=== PATIENT | male | born 1975 | race Caucasian/White ===

== ENCOUNTER 2017-04-23 16:30 | Inpatient (IN) | payer SELFPAY ==
[~2017-04-23] VITALS: Ht 175.3 cm; Wt 66.2 kg
[2017-04-23] VITALS (8 sets, daily range): BP systolic 126–162; BP diastolic 67–94
--- NOTE | ~2017-04-23 | CON ---
[place], [place] [id number] UNIT #: [id number] ROOM: 416 DOCTOR: MICHAEL WHALEY MD BIRTHDATE: [birth year] DOS: 04/24/2017 REASON FOR CONSULTATION: Elevated troponin levels. HISTORY OF PRESENT ILLNESS: The patient is a 41-year-old man who has no previously documented history of heart disease. He takes no prescribed medicines. He does have risk factors of cigarette abuse and a family history of coronary artery disease. His father reportedly had bypass surgery and then of coronary artery disease by age 62. The patient does not have a history of diabetes, hypertension or hyperlipidemia. The patient does have a history of drug abuse. He apparently did use heroin yesterday. In addition, he had "snorted a pain pill." He lost consciousness and EMS were called. At the scene, he was given Narcan with improvement in his sensorium. He states that bystanders said that he was "" but there is nothing in the records that indicates that he was defibrillated or had CPR. Urine drug screen was multiple positive including opiates, barbiturates, amphetamines, benzodiazepines and cannabinoids. In the Emergency Room, the patient did have cardiac biomarkers drawn. Total CK was normal, but his troponin level on admission was elevated at 0.090. Serial troponin levels were obtained and the peak troponin was 0.261. It is now falling in a pattern suggesting a non-ST elevation myocardial infarction. The patient denies any chest pain. He denies any history of angina. He denies any palpitations, lightheadedness or syncope prior to yesterday's events. PAST MEDICAL HISTORY: Essentially unremarkable. The patient specifically denies hypertension, diabetes or hyperlipidemia. MEDICATIONS: He is on no prescribed medications. ALLERGIES: He has no known drug allergies. FAMILY HISTORY: The patient's father had a bypass surgery and three MIs. He at age 62 from a heart attack. His mother of chronic obstructive pulmonary disease. REVIEW OF SYSTEMS: The patient denies diplopia or loss of vision. He denies focal weakness. He denies lightheadedness or syncope. He denies fevers, chills, sweats or recent weight change. He denies nausea or vomiting. He denies orthopnea or PND. He denies chest pain or palpitations. He denies cough or hemoptysis. He denies hematemesis. He denies any skin rashes polydipsia, polyuria, heat or cold intolerance. He denies anxiety or significant depression. He denies change in bowel or bladder habits. He denies blood in his urine or stools. He denies any peripheral edema. The remainder of the review of systems is negative except as noted above. SOCIAL HISTORY: The patient is known to abuse illegal drugs including opioids, [place], [place] REPORT OF CONSULTATION NAME: PALAK HU UNIT #: [id number] ROOM: [facility] DOCTOR: MICHAEL WHALEY MD BIRTHDATE: [birth year] cannabis and amphetamines. He does smoke about a half pack of cigarettes a day, but does not consume alcohol. PHYSICAL EXAMINATION: GENERAL: The patient is a well-nourished white male who is awake, alert and oriented. VITAL SIGNS: Pulse is 66 and regular, blood pressure is 100/50. He is afebrile. He weighs 66.2 kilograms and has a body mass index of 21.6. HEENT: Normocephalic, atraumatic. Extraocular muscles are intact. Sclerae are clear. Pupils are equal, round and reactive to light. The oral mucosa is moist. Tongue is midline. NECK: Supple. He has no jugular distention. Carotids are full. I heard no bruits. He had no neck or clavicular masses. LUNGS: Respirations are unlabored. His chest is clear to auscultation and percussion. He had no presacral edema or chest wall tenderness. HEART: Had a regular rhythm. He had a fourth heart sound, but no third heart sound or murmur. The PMI was not displaced. He had no precordial heave, lift or thrill. ABDOMEN: Soft and normoactive without masses, organomegaly or bruits. EXTREMITIES: Showed no clubbing, cyanosis or edema. Peripheral pulses were easily palpated in the feet bilaterally. LABORATORY DATA: I reviewed his electrocardiogram, which showed sinus rhythm with nonspecific lateral T-wave flattening, but no acute ST elevation or depression. His hemoglobin is 13.2, white count 9000, platelet count 106,000. Sodium 145, potassium 4.1, BUN 8, creatinine 0.88. Troponins are as noted above. Total cholesterol is 128 with an LDL of 72 and HDL of 44 and triglycerides of 60. TSH is 0.930. IMPRESSIONS: 1. Unintentional heroin overdose. 2. Multidrug abuse. 3. Elevated troponin. 4. Family history of heart disease in his father in his 50s. PLAN: The patient's blood studies are consistent with an acute non-ST elevation myocardial infarction. This may have been due to demand ischemia from hypoxemia, amphetamine abuse, etc. However, given his family history, one must at least consider that he has underlying coronary disease. I think that he should undergo an exercise myocardial perfusion study. If this shows normal left ventricular size, wall motion and function with normal perfusion, then no other cardiac workup would be indicated, but if it does show large areas of ischemia, then catheterization would be a next step. I thank the hospitalist physicians for asking our advice regarding management of this patient. [place], [place] REPORT OF CONSULTATION NAME: PALAK HU UNIT #: [id number] ROOM: 416 DOCTOR: MICHAEL WHALEY MD BIRTHDATE: [birth year] MICHAEL WHALEY MD CM:CONSTR:REPORT OF CONSULTATION [id number] 04/24/17 2149 interface
--- NOTE | ~2017-04-23 | PR ---
[place], [place] PROGRESS NOTE NAME: PALAK HU [facility] #: [id number] UNIT #: [id number] ROOM: 416 DOCTOR: MICHAEL WHALEY MD BIRTHDATE: [birth year] DOS: 04/25/2017 SUBJECTIVE: The patient was seen in the cardiology department just prior to his stress test today. He had no problems overnight and specifically denied chest pain, palpitations, or dyspnea. PHYSICAL EXAMINATION: VITAL SIGNS: His pulse was 52 and regular, blood pressure is 102/48, he was afebrile, he weighed 66.2 kilograms with a body mass index of 21.6. NECK: Supple. He had no jugular distention. Carotids are full. LUNGS: Respirations were unlabored. CHEST: His chest was clear to auscultation and percussion. He had no presacral edema or chest wall tenderness. HEAR: Had a regular rhythm with a soft S4 gallop, but no S3 or murmur. The PMI was not displaced. He had no precordial heave, lift or thrill. ABDOMEN: Benign. EXTREMITIES: Showed no edema. IMPRESSION: 1. Unintentional heroin overdose. 2. Multidrug abuse. 3. Elevated troponin. 4. Family history of heart disease in his father in his 50s. PLAN: The patient appears clinically stable from a cardiac standpoint. We will evaluate him further with an exercise stress myocardial perfusion study. Further recommendations will depend upon the results of the stress test. I thank the hospitalist physicians for asking our advice regarding his care. MICHAEL WHALEY MD CM:PNTRANS [id number] MICHAEL WHALEY MD 04/25/17 1433 interface
--- NOTE | ~2017-04-23 | ST ---
[place], [place] EXERCISE STRESS TEST REPORT NAME: PALAK HU [facility] #: [id number] UNIT #: [id number] ROOM: 416 DOCTOR: MICHAEL WHALEY MD BIRTHDATE: [birth year] DOS: 04/25/2017 INDICATIONS: Abnormal electrocardiogram and elevated troponin levels. PROCEDURE: The patient walked on a full Nathaniel protocol for 9 minutes 14 seconds and achieved a maximum heart rate of 120. He had to stop at that point because of leg fatigue and dyspnea. His heart rate was well below 85% of his maximum predicted heart rate. We continued to have the patient walk on the treadmill, but at the low rate and then administered regadenoson 0.4 mg intravenously followed by a saline flush. The patient felt dyspneic, but had no other symptoms. The resting electrocardiogram showed left ventricular hypertrophy. No further changes occurred with the exercise or infusion. Forty seconds after the infusion of regadenoson, he was given radionuclide intravenously. IMPRESSION: 1. Adequate exercise capacity, but without an adequate heart rate response. 2. Well tolerated infusion of regadenoson. 3. Radionuclide injected. Please see the separate imaging report for further details of the patient's stress test results. MICHAEL WHALEY MD CM:STRESS:EXERCISE STRESS TEST REPORT [id number] MICHAEL WHALEY MD
[~2017-04-23 16:30] MED LIST: CATAFLAM50 MG PO; CLEOCIN HCL300 MG PO; CLINDAMYCIN HC300 MG PO; DELTASONE20 M1 PO; IBU800 M1 PO; IBU800 MG PO; MOBIC15 MG PO; PEN-VEE K500 MG PO; PENICILLIN VK500 MG PO; ULTRAM50 MG PO
[2017-04-23 18:04] LABS: HEMATOCRIT 50.6 % (42.0-52.0); HEMOGLOBIN 16.9 g/dl (14.0-18.0); MEAN CELL VOLUME 95.7 fl (80.0-94.0); MEAN CORPUSCULAR HGB 31.9 pg (27.0-31.0); MEAN CORPUSCULAR HGB CONC 33.4 g/dl (33.0-37.0); MEAN PLATELET VOLUME 11.3 fl (9.6-12.3); PLATELET COUNT AUTOMATED 131 10*3/uL (130-400); RED BLOOD COUNT 5.29 10*6/uL (4.50-5.90); RED CELL DISTRI WIDTH 12.3 % (0-14.5)
[2017-04-23 18:14] LABS: INTERNATIONAL NORM RATIO 1.1 (2.0-3.5); PROTHROMBIN TIME 11.2 SECONDS (9.0-12.4)
[2017-04-23 18:24] LABS: LYMPHOCYTE # 0.6 10*3/uL (1.3-4.4); MONOCYTE # 1.1 10*3/uL (0.1-1.0); NEUTROPHIL # 19.3 10*3/uL (2.3-7.9); NEUTROPHILS 92 % (47-73); TOTAL CELLS COUNTED 100 #CELLS
[2017-04-23 18:25] LABS: ALBUMIN 3.5 gm/dl (3.1-4.5); ALKALINE PHOSPHATASE 136 U/L (45-117); BILIRUBIN, TOTAL 0.4 mg/dl (0.2-1.0); BUN 12 mg/dl (7-24); C-REACTIVE PROTEIN < 0.29 MG/DL (0-0.3); CARBON DIOXIDE 29 mmol/L (21-32); CHLORIDE 108 mmol/L (98-107); CKMB 1.7 ng/ml (0.5-3.6); CPK 119 U/L (39-308); EST GLOM FILT AFRICAN AMERICAN > 60 ml/min; GLUCOSE 123 mg/dL (65-99); PLATELET SUFFICIENCY LOW (NORMAL); POTASSIUM 4.6 mmol/L (3.5-5.1); SGOT/AST 16 IU/L (3-35); SGPT/ALT 25 U/L (12-78); SODIUM 145 mmol/L (136-145); TOTAL PROTEIN 6.3 gm/dL (6.4-8.2)
[2017-04-23 19:23] LABS: BILIRUBIN NEGATIVE (NEGATIVE); BLOOD NEGATIVE (NEGATIVE); CLARITY CLEAR (CLEAR); COLOR YELLOW (YELLOW); GLUCOSE NEGATIVE (NEGATIVE); KETONE TRACE (NEGATIVE); LEUKO ESTERASE NEGATIVE (NEGATIVE); NITRITE NEGATIVE (NEGATIVE); PROTEIN 2+ (NEGATIVE); SPECIFIC GRAVITY 1.025 (1.005-1.030); UROBILINOGEN 0.2 E.U./dl (0.2-1.0)
[2017-04-23 19:29] LABS: BACTERIA 2+; EPITHELIAL CELLS 0-2; MUCOUS TRACE
[2017-04-23 19:32] LABS: URINE AMPHETAMINES > 1000 (1000ng/ml); URINE BARBITURATES > 200 (200ng/ml); URINE COCAINE < 300 (300ng/ml)
[2017-04-23 20:14] LABS: BASO % 0.1 % (0.0-1.0); EOS % 0.1 % (1.0-4.0); HEMATOCRIT 46.5 % (42.0-52.0); HEMOGLOBIN 15.3 g/dl (14.0-18.0); IG # 0.1 10*3/uL (0.0-0.1); LYMPH # 0.9 10*3/uL (1.3-4.4); LYMPH % 6.3 % (27.0-41.0); MEAN CELL VOLUME 96.1 fl (80.0-94.0); MEAN CORPUSCULAR HGB 31.6 pg (27.0-31.0); MEAN CORPUSCULAR HGB CONC 32.9 g/dl (33.0-37.0); MEAN PLATELET VOLUME 11.1 fl (9.6-12.3); MONO # 0.9 10*3/uL (0.1-1.0); MONO % 5.9 % (3.0-9.0); NEUT # 12.9 10*3/uL (2.3-7.9); NEUT % 87.1 % (47.0-73.0); PLATELET COUNT AUTOMATED 120 10*3/uL (130-400); RED BLOOD COUNT 4.84 10*6/uL (4.50-5.90); RED CELL DISTRI WIDTH 12.3 % (0-14.5); WHITE BLOOD COUNT 14.8 10*3/uL (4.8-10.8)
[2017-04-24] VITALS: BP 132/70
[2017-04-24 05:44] LABS: BUN 8 mg/dl (7-24); CARBON DIOXIDE 30 mmol/L (21-32); CHLORIDE 107 mmol/L (98-107); CHOLESTEROL 128 mg/dL (<200); EST GLOM FILT AFRICAN AMERICAN > 60 ml/min; FREE T4 1.13 ng/dl (0.76-1.46); GLUCOSE 97 mg/dL (65-99); HDL CHOLESTEROL 44 mg/dl (40-60); LDL CHOLESTEROL 72 mg/dL (9-159); MAGNESIUM 1.8 mg/dL (1.5-2.1); PHOSPHOROUS 3.4 mg/dL (2.5-4.9); POTASSIUM 4.1 mmol/L (3.5-5.1); SODIUM 145 mmol/L (136-145); TRIGLYCERIDES 60 mg/dl (<150); VLDL CHOLESTEROL 12 mg/dL (6-40)
[2017-04-24 05:48] LABS: TROPONIN I 0.117 ng/ml (<0.045)
[2017-04-24 06:16] LABS: BASO % 0.3 % (0.0-1.0); EOS # 0.1 10*3/uL (0.0-0.4); HEMATOCRIT 40.5 % (42.0-52.0); IG # 0.1 10*3/uL (0.0-0.1); LYMPH # 2.8 10*3/uL (1.3-4.4); LYMPH % 31.1 % (27.0-41.0); MEAN CELL VOLUME 96.4 fl (80.0-94.0); MEAN CORPUSCULAR HGB 31.4 pg (27.0-31.0); MEAN CORPUSCULAR HGB CONC 32.6 g/dl (33.0-37.0); MEAN PLATELET VOLUME 11.8 fl (9.6-12.3); MONO # 0.6 10*3/uL (0.1-1.0); NEUT # 5.4 10*3/uL (2.3-7.9); PLATELET COUNT AUTOMATED 106 10*3/uL (130-400); RED CELL DISTRI WIDTH 12.3 % (0-14.5)
[2017-04-24 06:18] LABS: HEMOGLOBIN 13.2 g/dl (14.0-18.0)
[2017-04-24 07:22] LABS: HEMOGLOBIN A1c 5.3 % (4.8-5.6)
[2017-04-24 08:00] VITALS: BP 116/54
[2017-04-24 08:05] LABS: FOLIC ACID 5.99 ng/mL (>5.38)
[2017-04-24 12:00] VITALS: BP 100/50
[2017-04-24 16:00] VITALS: BP 104/57
[2017-04-24 20:00] VITALS: BP 116/41
[2017-04-25] VITALS: BP 103/46; BP 116/41
[2017-04-25 08:00] VITALS: BP 102/48
== END 2017-04-25 13:00 | disposition left against medical advice (07) | DRG 918 ==
LOC: ED 16:30 → EDHOLD 21:01 → 4E 21:33
PROVIDERS: Emergency Medicine; Internal Medicine; Student in an Organized Health Care Education/Training Program
DX: T40.1X1A Poisoning by heroin, accidental (unintentional), initial encounter (principal); R65.10 Systemic inflammatory response syndrome (SIRS) of non-infectious origin without acute organ dysfunction; I24.8 Other forms of acute ischemic heart disease; E87.8 Other disorders of electrolyte and fluid balance, not elsewhere classified; E44.0 Moderate protein-calorie malnutrition; F12.10 Cannabis abuse, uncomplicated; D72.829 Elevated white blood cell count, unspecified; R09.02 Hypoxemia; R80.9 Proteinuria, unspecified; R73.9 Hyperglycemia, unspecified; F17.210 Nicotine dependence, cigarettes, uncomplicated; E55.9 Vitamin D deficiency, unspecified; Z71.6 Tobacco abuse counseling; Y92.89 Other specified places as the place of occurrence of the external cause; Z82.49 Family history of ischemic heart disease and other diseases of the circulatory system

== ENCOUNTER 2017-06-20 21:27 | Emergency (ER) | payer MEDICAID ==
[~2017-06-20] VITALS: Ht 175.2 cm; Wt 68.0 kg
[2017-06-20] MEDS ORDERED: AMOXICILLIN500 M2 PO (22:08)
[2017-06-20] MEDS ORDERED: Motrin,Rufen800 MG PO (22:08)
[2017-06-20] MEDS ORDERED: CLINDAMYCIN HC300 MG PO (22:12)
== END 2017-06-20 22:20 | disposition home or self-care (01) ==
LOC: ED 21:27
DX: K08.89 Other specified disorders of teeth and supporting structures (principal); F17.200 Nicotine dependence, unspecified, uncomplicated

== ENCOUNTER → 2017-07-17 | Outpatient (CLI) | payer OTHER ==
[~2017-07-17] MED LIST changes: +AMOXICILLIN500 M2 PO; +Motrin,Rufen800 MG PO
[2017-07-17 11:47] LABS: HEMATOCRIT 47.2 % (42.0-52.0); HEMOGLOBIN 15.6 g/dl (14.0-18.0); MEAN CORPUSCULAR HGB 31.1 pg (27.0-31.0); MEAN CORPUSCULAR HGB CONC 33.1 g/dl (33.0-37.0); MEAN PLATELET VOLUME 11.2 fl (9.6-12.3); RED BLOOD COUNT 5.02 10*6/uL (4.50-5.90); RED CELL DISTRI WIDTH 12.5 % (0-14.5); WHITE BLOOD COUNT 6.4 10*3/uL (4.8-10.8)
[2017-07-17 12:16] LABS: ALBUMIN 3.6 gm/dl (3.1-4.5); ALKALINE PHOSPHATASE 141 U/L (45-117); BUN 14 mg/dl (7-24); CHLORIDE 108 mmol/L (98-107); CHOLESTEROL 171 mg/dL (<200); CREATININE 0.95 mg/dL (0.70-1.30); HDL CHOLESTEROL 53 mg/dl (40-60); LDL CHOLESTEROL 104 mg/dL (9-159); POTASSIUM 3.8 mmol/L (3.5-5.1); SGOT/AST 20 IU/L (3-35); SGPT/ALT 29 U/L (12-78); SODIUM 139 mmol/L (136-145); TOTAL PROTEIN 6.7 gm/dL (6.4-8.2); TRIGLYCERIDES 71 mg/dl (<150); VLDL CHOLESTEROL 14 mg/dL (6-40)
== END | disposition home or self-care (01) ==
LOC: LAB 11:15
PROVIDERS: Family Medicine
DX: M25.551 Pain in right hip (principal); M25.552 Pain in left hip; E78.00 Pure hypercholesterolemia, unspecified; E55.9 Vitamin D deficiency, unspecified; M54.9 Dorsalgia, unspecified; F17.200 Nicotine dependence, unspecified, uncomplicated; R20.0 Anesthesia of skin; R53.83 Other fatigue

== ENCOUNTER → 2017-07-24 | Outpatient (CLI) | payer OTHER ==
[2017-07-25 08:11] LABS: RHEUMATOID ARTHRITIS FACTOR 518.9 IU/mL (0.0-13.9)
[2017-07-25 14:07] LABS: SJOGREN ANTI-SS-A <0.2 AI (0.0-0.9); SJOREN AB, ANTI-SS-B <0.2 AI (0.0-0.9)
[2017-07-26 00:04] LABS: CCP ANTIBODIES IGG/IGA 4 units (0-19)
== END | disposition home or self-care (01) ==
LOC: LAB 11:26
PROVIDERS: Family Medicine
DX: M79.1 Myalgia (principal); M25.50 Pain in unspecified joint

== ENCOUNTER 2018-04-05 13:34 | Emergency (ER) | payer OTHER ==
[~2018-04-05] VITALS: Wt 72.6 kg
== END 2018-04-05 15:10 | disposition home or self-care (01) ==
LOC: ED 13:34
DX: S22.32XA Fracture of one rib, left side, initial encounter for closed fracture (principal); F17.200 Nicotine dependence, unspecified, uncomplicated; W01.0XXA Fall on same level from slipping, tripping and stumbling without subsequent striking against object, initial encounter; Y93.89 Activity, other specified; Y92.89 Other specified places as the place of occurrence of the external cause; Y99.8 Other external cause status

== ENCOUNTER 2020-09-18 20:12 | Emergency (ER) | payer OTHER ==
[~2020-09-18] VITALS: Ht 175.2 cm; Wt 68.0 kg
== END 2020-09-18 22:34 | disposition home or self-care (01) ==
LOC: ED 20:12
DX: S16.1XXA Strain of muscle, fascia and tendon at neck level, initial encounter (principal); S50.01XA Contusion of right elbow, initial encounter; S46.811A Strain of other muscles, fascia and tendons at shoulder and upper arm level, right arm, initial encounter; S09.90XA Unspecified injury of head, initial encounter; Z87.891 Personal history of nicotine dependence; W18.39XA Other fall on same level, initial encounter; Y93.89 Activity, other specified; Y92.89 Other specified places as the place of occurrence of the external cause; Y99.8 Other external cause status

== ENCOUNTER → 2020-09-21 | Outpatient (CLI) | payer OTHER ==
[2020-09-21 14:04] LABS: HEMATOCRIT 47.3 % (42.0-52.0); MEAN CELL VOLUME 97.3 fl (80.0-94.0); MEAN CORPUSCULAR HGB 31.5 pg (27.0-31.0); MEAN CORPUSCULAR HGB CONC 32.3 g/dl (33.0-37.0); MEAN PLATELET VOLUME 11.4 fl (9.6-12.3); RED BLOOD COUNT 4.86 10*6/uL (4.50-5.90); RED CELL DISTRI WIDTH 12.3 % (0-14.5); WHITE BLOOD COUNT 5.9 10*3/uL (4.8-10.8)
[2020-09-21 14:24] LABS: ALBUMIN 3.2 gm/dl (3.1-4.5); ALKALINE PHOSPHATASE 150 U/L (45-117); BUN 13 mg/dl (7-24); CHLORIDE 108 mmol/L (98-107); CHOLESTEROL 167 mg/dL (<200); CREATININE 1.08 mg/dL (0.70-1.30); HDL CHOLESTEROL 71 mg/dl (40-60); LDL CHOLESTEROL 69 mg/dL (9-159); SGOT/AST 23 IU/L (3-35); SGPT/ALT 43 U/L (12-78); SODIUM 141 mmol/L (136-145); TOTAL PROTEIN 6.4 gm/dL (6.4-8.2); TRIGLYCERIDES 133 mg/dl (<150); VLDL CHOLESTEROL 27 mg/dL (6-40)
[2020-09-21 15:22] LABS: VITAMIN D, 25-HYDROXY 18.5 ng/mL (30-100)
== END | disposition home or self-care (01) ==
LOC: LAB 13:30
PROVIDERS: ATTEND Family Medicine
DX: S50.01XA Contusion of right elbow, initial encounter (principal); E55.9 Vitamin D deficiency, unspecified; E78.00 Pure hypercholesterolemia, unspecified; R53.83 Other fatigue; X58.XXXA Exposure to other specified factors, initial encounter; Y93.89 Activity, other specified; Y92.89 Other specified places as the place of occurrence of the external cause; Y99.8 Other external cause status

== ENCOUNTER 2023-03-29 20:24 | Emergency (ER) | payer OTHER ==
[~2023-03-29] VITALS: Wt 66.2 kg
[2023-03-29] MEDS ORDERED: CEPHALEXIN500 M1 PO (23:11)
[2023-03-29] MEDS ORDERED: IBUPROFEN600 MG PO (23:11)
== END 2023-03-30 01:33 | disposition home or self-care (01) ==
LOC: ED 20:24
DX: S61.011A Laceration without foreign body of right thumb without damage to nail, initial encounter (principal); Z98.890 Other specified postprocedural states; F17.200 Nicotine dependence, unspecified, uncomplicated; W26.8XXA Contact with other sharp object(s), not elsewhere classified, initial encounter; Y93.89 Activity, other specified; Y92.89 Other specified places as the place of occurrence of the external cause; Y99.8 Other external cause status

== ENCOUNTER → 2023-06-05 | Outpatient (CLI) | payer OTHER ==
[~2023-06-05] MED LIST changes: +CEPHALEXIN500 M1 PO; +IBUPROFEN600 MG PO
[2023-06-05 16:49] LABS: HEMATOCRIT 43.5 % (42.0-52.0); MEAN CELL VOLUME 94.4 fl (80.0-94.0); MEAN CORPUSCULAR HGB 31.9 pg (27.0-31.0); MEAN CORPUSCULAR HGB CONC 33.8 g/dl (33.0-37.0); MEAN PLATELET VOLUME 11.1 fl (9.6-12.3); RED BLOOD COUNT 4.61 10*6/uL (4.50-5.90); RED CELL DISTRI WIDTH 12.7 % (0-14.5); WHITE BLOOD COUNT 9.1 10*3/uL (4.8-10.8)
[2023-06-05 17:25] LABS: VITAMIN D, 25-HYDROXY 19.4 ng/mL (30-100)
[2023-06-05 17:26] LABS: ALKALINE PHOSPHATASE 143 U/L (46-116); BUN 13 mg/dl (9-23); CHLORIDE 107 mmol/L (98-107); CHOLESTEROL 183 mg/dL (<200); FREE T4 0.86 ng/dl (0.89-1.76); LDL CHOLESTEROL 102 mg/dL (9-159); POTASSIUM 3.4 mmol/L (3.4-5.1); SGPT/ALT 63 U/L (10-49); TOTAL PROTEIN 5.7 gm/dL (6.0-8.0); TRIGLYCERIDES 95 mg/dl (<150)
== END | disposition home or self-care (01) ==
LOC: LAB 16:21
PROVIDERS: ATTEND Family Medicine
DX: Z13.220 Encounter for screening for lipoid disorders (principal); M47.817 Spondylosis without myelopathy or radiculopathy, lumbosacral region; M47.812 Spondylosis without myelopathy or radiculopathy, cervical region; R53.83 Other fatigue; F10.10 Alcohol abuse, uncomplicated; E55.9 Vitamin D deficiency, unspecified; Z79.899 Other long term (current) drug therapy

== ENCOUNTER 2023-08-05 19:27 | Emergency (ER) | payer OTHER ==
[~2023-08-05] VITALS: Ht 175.2 cm; Wt 68.0 kg
[2023-08-05] MEDS ORDERED: NAPROXEN250 MG PO (20:43)
== END 2023-08-05 21:51 | disposition home or self-care (01) ==
LOC: ED 19:27
DX: M79.641 Pain in right hand (principal); R22.31 Localized swelling, mass and lump, right upper limb; F17.200 Nicotine dependence, unspecified, uncomplicated; Z79.2 Long term (current) use of antibiotics; Z79.899 Other long term (current) drug therapy

== ENCOUNTER 2024-11-28 12:04 | Emergency (ER) | payer OTHER ==
[~2024-11-28] VITALS: Ht 175.2 cm; Wt 60.8 kg
[~2024-11-28 12:04] MED LIST changes: +NAPROXEN250 MG PO
[2024-11-28] MEDS ORDERED: LORazepam 1 MG TAB PO ONE (12:15)
[2024-11-28] MEDS ORDERED: cloNIDine Hydrochloride 0.1 MG TAB PO ONE (12:15)
[2024-11-28 12:23] LABS: BASO # 0.1 10*3/uL (0.0-0.1); BASO % 1.1 % (0.0-1.0); EOS # 0.1 10*3/uL (0.0-0.4); EOS % 1.7 % (1.0-4.0); HEMATOCRIT 54.4 % (42.0-52.0); MEAN CELL VOLUME 92.7 fl (80.0-94.0); MEAN CORPUSCULAR HGB CONC 33.5 g/dl (33.0-37.0); MEAN PLATELET VOLUME 11.3 fl (9.6-12.3); MONO # 0.7 10*3/uL (0.1-1.0); MONO % 8.3 % (3.0-9.0); NEUT # 5.3 10*3/uL (2.3-7.9); NEUT % 65.4 % (47.0-73.0); PLATELET COUNT AUTOMATED 190 10*3/uL (130-400); RED BLOOD COUNT 5.87 10*6/uL (4.50-5.90); RED CELL DISTRI WIDTH 12.4 % (0-14.5); WHITE BLOOD COUNT 8.1 10*3/uL (4.8-10.8)
[2024-11-28 12:41] LABS: BUN 10 mg/dl (9-23); CHLORIDE 105 mmol/L (98-107); POTASSIUM 3.5 mmol/L (3.4-5.1)
[2024-11-28] MEDS ORDERED: ATIVAN1 MG PO (13:19)
== END 2024-11-28 13:29 | disposition home or self-care (01) ==
LOC: ED 12:04
PROVIDERS: Nurse Practitioner Family
DX: F41.9 Anxiety disorder, unspecified (principal); R06.02 Shortness of breath; F13.939 Sedative, hypnotic or anxiolytic use, unspecified with withdrawal, unspecified; F17.200 Nicotine dependence, unspecified, uncomplicated; Z98.890 Other specified postprocedural states

== ENCOUNTER → 2025-02-24 | Outpatient (CLI) | payer OTHER ==
[~2025-02-24] MED LIST changes: +ATIVAN1 MG PO
== END | disposition home or self-care (01) ==
LOC: RAD 15:39
PROVIDERS: ATTEND Nurse Practitioner Family
DX: R29.6 Repeated falls (principal)

== ENCOUNTER → 2025-02-25 | Outpatient (CLI) | payer OTHER ==
[2025-02-25 18:14] LABS: BASO # 0.1 10*3/uL (0.0-0.1); BASO % 0.8 % (0.0-1.0); EOS # 0.1 10*3/uL (0.0-0.4); EOS % 1.8 % (1.0-4.0); HEMATOCRIT 52.7 % (42.0-52.0); MEAN CELL VOLUME 99.1 fl (80.0-94.0); MEAN CORPUSCULAR HGB 31.4 pg (27.0-31.0); MEAN CORPUSCULAR HGB CONC 31.7 g/dl (33.0-37.0); MEAN PLATELET VOLUME 12.1 fl (9.6-12.3); MONO # 0.6 10*3/uL (0.1-1.0); MONO % 7.7 % (3.0-9.0); PLATELET COUNT AUTOMATED 131 10*3/uL (130-400); RED BLOOD COUNT 5.32 10*6/uL (4.50-5.90); RED CELL DISTRI WIDTH 12.5 % (0-14.5); WHITE BLOOD COUNT 7.8 10*3/uL (4.8-10.8)
[2025-02-25 18:32] LABS: ALKALINE PHOSPHATASE 114 U/L (46-116); BUN 13 mg/dl (9-23); CHLORIDE 107 mmol/L (98-107); CHOLESTEROL 218 mg/dL (<200); LDL CHOLESTEROL 139 mg/dL (9-159); POTASSIUM 4.8 mmol/L (3.4-5.1); SGPT/ALT 22 U/L (5-49); TOTAL PROTEIN 6.7 gm/dL (6.0-8.0); TRIGLYCERIDES 68 mg/dl (<150)
== END | disposition home or self-care (01) ==
LOC: LAB 15:18
PROVIDERS: ATTEND Nurse Practitioner Family
DX: Z13.29 Encounter for screening for other suspected endocrine disorder (principal); Z13.220 Encounter for screening for lipoid disorders; I10 Essential (primary) hypertension; F13.20 Sedative, hypnotic or anxiolytic dependence, uncomplicated; Z76.89 Persons encountering health services in other specified circumstances